=== PATIENT | male | born 1990 | race Caucasian/White ===

== ENCOUNTER 2019-02-02 06:08 | Emergency (ER) | payer OTHER ==
[2019-02-02] MEDS: DIPHTH/TET/ACEL PERTUSS (ADULT) 0.5 ML VIAL IM* (08:09)
[2019-02-02] MEDS: ACETAMINOPHEN 500 MG TAB PO (08:09)
[2019-02-02] MEDS: LIDOCAINE 1% (MPF) 5 ML VIAL INFIL (09:17)
== END 2019-02-02 09:44 | disposition home or self-care (01) ==
LOC: FTE 06:08
DX: S01.112A Laceration without foreign body of left eyelid and periocular area, initial encounter (principal); F17.210 Nicotine dependence, cigarettes, uncomplicated; S09.90XA Unspecified injury of head, initial encounter; W01.198A Fall on same level from slipping, tripping and stumbling with subsequent striking against other object, initial encounter; Y92.9 Unspecified place or not applicable; Z23 Encounter for immunization
CPT/HCPCS: 12011; 90471; 90715; 99283-25

== ENCOUNTER → 2019-02-07 | Emergency (ER) | payer OTHER | END | disposition home or self-care (01) | LOC: FTE 10:12 | DX: Z48.02 Encounter for removal of sutures (principal) | CPT/HCPCS: 99281; Z7502 ==

== ENCOUNTER 2019-02-22 05:52 | Emergency (ER) | payer OTHER ==
[2019-02-22] MEDS: KETOROLAC 60 MG INJ IM (06:27)
== END 2019-02-22 07:51 | disposition home or self-care (01) ==
LOC: FTE 07:51
DX: M54.5 Low back pain (principal)
CPT/HCPCS: 96372; 99284-25